=== PATIENT | female | born 1980 | race Caucasian/White ===

== ENCOUNTER 2016-05-01 04:38 | Emergency (ER) | payer MEDICAID ==
[2016-05-01] MEDS ORDERED: LORazepam 2 MG/ML INJ IVP ONE (04:45)
[2016-05-01] MEDS ORDERED: ONDANSETRON 4 MG/2 ML VIAL IVP ONE (04:45)
[2016-05-01] MEDS ORDERED: NS 1,000 ML IV ONE (04:45)
[2016-05-01] MEDS ORDERED: LORazepam 2 MG/ML INJ ONE (04:45)
--- NOTE | 2016-05-01 04:45 | EDPHY ---
H & P HPI/ROS: HPI CHIEF COMPLAINT: Alcohol WithDrawl. HISTORY OF PRESENT ILLNESS: This patient very pleasant 35-year-old female she denies any significant medical history, she tells me that she drinks alcohol daily, her last drink was around 6:30 p.m. last night. She is at the [facility] ([facility] she tells me that she has a positive test last week and due to the alcohol withdrawal that she was feeling this evening she cannot get Librium so she was sent here to the emergency room. Upon arrival here in the emergency room her vital signs are noted to be normal heart rates 90. Pulse ox 96% blood pressure is appropriate 123/85. She is not shaking she is not vomiting. She appears well she denies any abdominal pain vaginal bleeding or vaginal discharge. She is unsure exactly how she is she states she maybe 2-3 weeks . Past Medical History: Alcoholism Past Surgical History: denies significant surgical history Social History: daily alcohol use, denies drugs or tobacco products Family History: Noncontributory ROS REVIEW OF SYSTEMS: A comprehensive 10 point review of systems is otherwise negative aside from elements mentioned in the history of present illness. Exam Constitutional appears well nontoxic, triage nursing summary reviewed, vital signs reviewed, awake/alert. Eyes normal conjunctivae and sclera, EOMI, PERRLA. HENT normal inspection, atraumatic, moist mucus membranes, no epistaxis, neck supple/ no meningismus, no raccoon eyes. Respiratory clear to auscultation bilaterally, normal breath sounds, no respiratory distress, no wheezing. Cardiovascular rate normal, regular rhythm, no murmur, no edema, distal pulses normal. Gastrointestinal soft, non-tender, no rebound, no guarding, normal bowel sounds, no distension, no pulsatile mass. Genitourinary no CVA tenderness. Musculoskeletal no midline vertebral tenderness, full range of motion, no calf swelling, no tenderness of extremities, no meningismus, good pulses, neurovascularly intact. Skin pink, warm, & dry, no rash, skin atraumatic. Neurologic awake, alert and oriented x 3, AAOx3, moves all 4 extremities equally, motor intact, sensory intact, CN II-XII intact, normal cerebellar, normal vision, normal speech. Psychiatric normal mood/affect. Heme/Lymph/Immune no lymphadenopathy. Differential Diagnosis: Includes but is not limited to in a particular order, alcohol withdrawal, dehydration, electrolyte abnormality, nausea vomiting from alcohol withdrawal, Medical Decision Making: This patient had an IV established be medicated with IV fluids normal saline IV Zofran for nausea and 0.5 mg IV Ativan. She does appear well she does not appear to go through any significant withdrawal at this time. I will allow her to go back to the [facility]), with a very limited supply of Valium to help her withdrawal. I did go over strict precautions she should not drink alcohol while being . She understands this. Re-evaluation: 528: Re-examination at this time she is resting comfortably. No evidence of alcohol withdrawal. No tachycardia, she is not tremulous. She is agreeable to go back to the [facility] I will prescribe her 3 Ativan pills. Source: Patient, EMS Constitutional: Initial Vital Signs Temperature (C) 36.4 C 05/01/16 04:40 Heart Rate 79 05/01/16 04:40 Respiratory Rate 20 05/01/16 04:40 Blood Pressure 125/93 H 05/01/16 04:40 O2 Sat (%) 94 05/01/16 04:40 O2 Delivery Mode Room Air Allergies/Adverse Reactions: hydrocodone bitartrate [From Vicodin] Allergy (Verified 01/10/10 19:27) Home Medications: Medication Instructions Recorded Embral 04/28/12 Medical Decision Making - Data Points Laboratory Results: Laboratory Results 05/01/16 04:35 05/01/16 04:35 05/01/16 04:35 WBC 5.55 10^3/uL (3.80-9.50) RBC 4.58 10^6/uL (4.18-5.33) Hgb 14.9 g/dL (12.6-16.3) Hct 43.9 % (38.0-47.0) MCV 95.9 fL (81.5-99.8) MCH 32.5 pg (27.9-34.1) MCHC 33.9 g/dL (32.4-36.7) RDW 12.7 % (11.5-15.2) Plt Count 270 10^3/uL (150-400) MPV 10.0 fL (8.7-11.7) Neut % (Auto) 44.7 % (39.3-74.2) Lymph % (Auto) 45.2 H % (15.0-45.0) [place] % (Auto) 6.5 % (4.5-13.0) Eos % (Auto) 2.5 % (0.6-7.6) Baso % (Auto) 0.7 % (0.3-1.7) Nucleat RBC Rel Count 0.0 % (0.0-0.2) Absolute Neuts (auto) 2.48 10^3/uL (1.70-6.50) Absolute Lymphs (auto) 2.51 10^3/uL (1.00-3.00) Absolute Monos (auto) 0.36 10^3/uL (0.30-0.80) Absolute Eos (auto) 0.14 10^3/uL (0.03-0.40) Absolute Basos (auto) 0.04 10^3/uL (0.02-0.10) Absolute Nucleated RBC 0.00 10^3/uL (0-0.01) Immature Gran % 0.4 % (0.0-1.1) Immature Gran # 0.02 10^3/uL (0.00-0.10) Sodium 142 mEq/L (134-144) Potassium 4.0 mEq/L (3.5-5.2) Chloride 110 mEq/L (97-110) Carbon Dioxide 23 mEq/l (22-31) Anion Gap 9 mEq/L (8-16) BUN 8 mg/dL (7-23) Creatinine 0.6 mg/dL (0.6-1.0) Estimated GFR > 60 Glucose 103 H mg/dL (70-100) Calcium 8.7 mg/dL (8.5-10.4) Medications Given: Discontinued Medications Acetaminophen (Tylenol) 1,000 mg PO EDNOW ONE Stop: 05/01/16 05:01 Last Admin: 05/01/16 05:10 Dose: 1,000 mg Sodium Chloride (Ns) 1,000 mls @ 0 mls/hr IV ONCE ONE PRN Reason: Wide Open Stop: 05/01/16 04:46 Last Admin: 05/01/16 04:45 Dose: 1,000 mls Lorazepam (Ativan Injection) 1 mg IVP EDNOW ONE Stop: 05/01/16 04:46 Last Admin: 05/01/16 04:45 Dose: 1 mg Ondansetron HCl (Zofran) 4 mg IVP EDNOW ONE Stop: 05/01/16 04:46 Last Admin: 05/01/16 04:45 Dose: 4 mg Departure - Departure Disposition: Home, Routine, Self-Care Clinical Impression: Alcohol abuse Condition: Good Instructions: Abuse of Alcohol (ED), Alcohol Intoxication (ED) Additional Instructions: 1. Please stay well-hydrated. Please do not drink alcohol while your . Referrals: Patient,NotPresent [Unknown] - As per Instructions
[2016-05-01] MEDS ORDERED: ACETAMINOPHEN 500 MG TAB PO ONE (05:00)
[2016-05-01 05:01] LABS: % IMMATURE GRANULYOCYTES 0.4 % (0.0-1.1); ABSOLUTE IMMATURE GRANULOCYTES 0.02 10^3/uL (0.00-0.10); ADD DIFF? NO; ADD MORPH? NO; ADD SCAN? NO; ATYPICAL LYMPHOCYTE FLAG 30 (0-99); FRAGMENT RBC FLAG 0 (0-99); HEMATOCRIT 43.9 % (38.0-47.0); HEMOGLOBIN 14.9 g/dL (12.6-16.3); LEFT SHIFT FLG 0 (0-99); LIPEMIA HEMOLYSIS FLAG 90 (0-99); MEAN CELL HEMOGLOBIN 32.5 pg (27.9-34.1); MEAN CELL HEMOGLOBIN CONCENTR. 33.9 g/dL (32.4-36.7); MEAN CELL VOLUME 95.9 fL (81.5-99.8); PLATELET CLUMPS FLAG 0 (0-99); PLATELET COUNT 270 10^3/uL (150-400); RED BLOOD CELL COUNT 4.58 10^6/uL (4.18-5.33); RED CELL DISTRIBUTION WIDTH 12.7 % (11.5-15.2)
[2016-05-01] MEDS ORDERED: ACETAMINOPHEN 500 MG TAB ONE (05:10)
[2016-05-01 05:26] LABS: ANION GAP 9 mEq/L (8-16); CALCIUM 8.7 mg/dL (8.5-10.4); CARBON DIOXIDE 23 mEq/l (22-31); CHLORIDE 110 mEq/L (97-110); CREATININE 0.6 mg/dL (0.6-1.0); GLOMERULAR FILTRATION RATE > 60; GLUCOSE 103 mg/dL (70-100); SODIUM 142 mEq/L (134-144)
[2016-05-01] MEDS ORDERED: LORAZEPAM 1 MG PREPACK#4 BTL TAKEHOME ONE (05:30)
[2016-05-01 06:26] VITALS: RESP 16
[2016-05-01 06:27] VITALS: BP 116/67; PULSE 84; TEMP 98.2; O2SAT 96
== END 2016-05-01 06:25 | disposition home or self-care (01) ==
LOC: EDUNIT#
DX: F10.10 Alcohol abuse, uncomplicated (principal)
CPT/HCPCS: 96374; J2405